=== PATIENT | male | born 2000 | race Caucasian/White ===

== ENCOUNTER 2019-12-18 11:31 | Emergency (ER) | payer MEDICARE, OTHER ==
[~2019-12-18] VITALS: Ht 177.8 cm; Wt 125.6 kg
[~2019-12-18 11:31] MED LIST: Ativan0.5 MG PO; DIVA250EC PO; DIVA500ER PO; IBUP400 PO; IBUP600 PO; LAMO100 PO; LEVE500 PO; MIDAZOLAM INH; NEOCOLOTSU LEFTEAR; ONDA4ODT MM; ONFI10 MG PO; Oxycodone HCl5 M1; Zithromax250 MG PO
[2019-12-18] MEDS ORDERED: LAMOTRIGINE300 MG PO (12:36)
[2019-12-18] MEDS ORDERED: LORA2 PO (12:37)
[2019-12-18 13:05] LABS: Influenza A Negative (NEGATIVE); Influenza B Negative (NEGATIVE)
== END 2019-12-18 13:31 | disposition home or self-care (01) ==
LOC: ER 11:31
PROVIDERS: Nurse Practitioner
DX: J06.9 Acute upper respiratory infection, unspecified (principal); Z79.899 Other long term (current) drug therapy
CPT/HCPCS: 36415; 71046; 87804; 99283-25

== ENCOUNTER 2020-08-03 15:30 | Emergency (ER) | payer OTHER ==
[~2020-08-03] VITALS: Ht 177.8 cm; Wt 125.6 kg
[~2020-08-03 15:30] MED LIST changes: +LAMOTRIGINE300 MG PO; +LORA2 PO
[2020-08-03 16:10] LABS: BASOPHILS ABSOLUTE AUTO 0.02 K/mm3 (0.00-0.23); BASOPHILS PERCENT AUTO 1 % (0-2); EOSINOPHILS PERCENT AUTO 0 % (0-6); Hematocrit 39.8 % (37.0-53.0); Hemoglobin 13.1 g/dL (13.5-17.5); IMMATURE GRAN ABSOLUTE AUTO 0.07 K/mm3 (0.00-0.10); IMMATURE GRAN PERCENT AUTO 3 % (0-1); LYMPHOCYTES ABSOLUTE AUTO 0.49 K/mm3 (0.84-5.20); LYMPHOCYTES PERCENT AUTO 20 % (21-46); MONOCYTES ABSOLUTE AUTO 0.31 K/mm3 (0.16-1.47); MONOCYTES PERCENT AUTO 12 % (4-13); Mean Corpuscular HGB 28.5 pg (26.0-34.0); Mean Corpuscular HGB Conc 32.9 g/dL (31.5-36.5); Mean Corpuscular Volume 87 fL (80-100); Mean Platelet Volume 9.3 fL (9.1-12.4); NEUTROPHILS ABSOLUTE AUTO 1.62 K/mm3 (1.96-9.15); NEUTROPHILS PERCENT AUTO 65 % (41-73); Platelet Count 125 K/mm3 (150-400); RDW Coefficient Variation 12.7 % (11.7-14.2); RDW Standard Deviation 40.1 fL (35.1-46.3); Red Blood Cell Count 4.59 M/mm3 (4.30-5.90); White Blood Cell Count 2.51 K/mm3 (4.00-11.30)
[2020-08-03 17:13] LABS: Alanine Aminotransfer (ALT/SGP 109 U/L (12-78); Albumin, Blood 3.6 g/dL (3.4-5.0); Albumin/Globulin Ratio 0.9 (0.8-1.8); Alk Phos 55 U/L (50-136); Anion Gap 8 mmol/L (6-16); Aspartate Aminotrans (AST/SGOT 64 U/L (12-37); Bilirubin, Total 0.7 mg/dL (0.1-1.0); Blood Urea Nitrogen 16 mg/dL (8-24); Bun/Creatinine Ratio 18.4 (12.0-20.0); CO2, Blood 24 mmol/L (21-32); Calcium, Blood 8.8 mg/dL (8.5-10.1); Chloride, Blood 110 mmol/L (98-108); Creatinine, Blood 0.87 mg/dL (0.60-1.20); Glomerular Filtration Rate >60 (60-); Glucose, Blood 110 mg/dL (70-99); Potassium, Blood 4.1 mmol/L (3.5-5.5); Sodium, Blood 142 mmol/L (136-145); Total Protein, Blood 7.6 g/dL (6.4-8.2)
[2020-08-03 17:30] LABS: Dilantin (Phenytoin), Total <0.4 ug/mL (10.0-20.0)
[2020-08-03 19:48] LABS: Valproic Acid 114.1 ug/mL (50.0-100.0)
[2020-08-04] MEDS ORDERED: CLOBAZAM20 MG PO (05:05)
[2020-08-04] MEDS ORDERED: DIVA250ER PO (05:06)
[2020-08-04] MEDS ORDERED: LAMOTRIGINE300 MG PO (05:07)
[2020-08-04] MEDS ORDERED: LAMOTRIGINE50 MG PO (05:08)
[2020-08-04] MEDS ORDERED: ACET325 PO (11:38)
== END 2020-08-03 20:02 | disposition home or self-care (01) ==
LOC: ER 15:30
PROVIDERS: Emergency Medicine
DX: R50.9 Fever, unspecified (principal); D72.819 Decreased white blood cell count, unspecified; D69.6 Thrombocytopenia, unspecified; Z20.828 Contact with and (suspected) exposure to other viral communicable diseases
CPT/HCPCS: 36415; 71045; 80053; 80164; 80175; 80185; 85025; 99284-25; U0004

== ENCOUNTER 2025-05-09 09:12 | Emergency (ER) | payer OTHER ==
[~2025-05-09] VITALS: Ht 177.8 cm; Wt 115.2 kg
[~2025-05-09 09:12] MED LIST changes: +ACET325 PO; +CLOBAZAM20 MG PO; +DIVA250ER PO; +LAMOTRIGINE50 MG PO
[2025-05-09 09:56] VITALS: BP 134/82
[2025-05-09] MEDS ORDERED: Bactrim Ds Tab1 EACH PO (10:45)
== END 2025-05-09 10:50 | disposition home or self-care (01) ==
LOC: ER 09:12
DX: L05.01 Pilonidal cyst with abscess (principal); G40.909 Epilepsy, unspecified, not intractable, without status epilepticus; R62.50 Unspecified lack of expected normal physiological development in childhood; F17.220 Nicotine dependence, chewing tobacco, uncomplicated; Z96.82 Presence of neurostimulator; Z79.899 Other long term (current) drug therapy
CPT/HCPCS: 10080; 99282-25